=== PATIENT | female | born 1975 | race Caucasian/White ===

== ENCOUNTER 2016-10-07 11:25 | Emergency (ER) | payer OTHER ==
[~2016-10-07] VITALS: Ht 149.9 cm; Wt 104.3 kg
[~2016-10-07 11:25] MED LIST: BACTRIM DS 8001 TAB PO; CLEOCIN HCL150 MG PO; CORGARD 40MG TA40 MG PO; CYCLOBENZAPRINE5 M1 PO; DILAUDID2 MG PO; FIORICET 325 MG1 TAB PO; HYDROMORPHONE HC2 MG PO; IBUPROFEN800 MG PO; INTEGRA-F1 CAP PO; LEXAPRO5 M1 PO; MOTRIN800 MG PO; NADOLOL20 MG PO; PRAZOSIN HCL1 M1 PO; PRILOSEC 20MG C20 MG PO; TESSALON PERLE100 M1 PO; TRAMADOL50 MG PO; ZITHROMAX250 M2 PO; ZOFRAN ODT4 MG PO
[2016-10-07] MEDS ORDERED: ESCITALOPRAM OX10 MG PO (12:03)
[2016-10-07] MEDS ORDERED: GABAPENTIN100 M2 PO (12:05)
[2016-10-07] MEDS ORDERED: NALTREXONE HCL50 M1 PO (12:05)
--- NOTE | 2016-10-07 12:05 | ED ANIMAL BITE/WOUND CHECK ---
History of Present Illness General Chief Complaint: Animal/Insect Bite Stated Complaint: BEE STING RT FOOT/USED EPI PEN Source: patient Exam Limitations: no limitations Vital Signs & Intake/Output Vital Signs & Intake/Output Vital Signs Date Time Temp Pulse Resp B/P B/P Pulse O2 O2 Flow FiO2 Mean Ox Delivery Rate 10/07 1147 96 Room Air 10/07 1130 98.6 89 16 154/106 96 Room Air Allergies Coded Allergies: Penicillins (Intermediate, FACIAL/LIP SWELLING 11/08/15) amoxicillin (From Augmentin) (Intermediate, FACIAL/LIP SWELLING 11/08/15) clavulanic acid (From Augmentin) (Intermediate, FACIAL/LIP SWELLING 11/08/15) codeine (Intermediate, RASH 11/08/15) divalproex sodium (Intermediate, RASH 11/08/15) guaifenesin (Intermediate, RASH 11/08/15) hydrocodone (Intermediate, RASH 11/08/15) latex (Intermediate, FACIAL/LIP SWELLING 11/08/15) Uncoded Allergies: NARCOTIC PAIN MEDS EXCEPT MS/DILAUDID (UNKNOWN 08/12/14) Reconcile Medications Azithromycin (Zithromax) 250 MG TABLET 1 DP PO AD BRONCHITIS 2 the first day followed by 1 for days 2-5 Benzonatate (Tessalon Perle) 100 MG CAPSULE 1 CAP PO TID COUGH Escitalopram Oxalate (Lexapro) 5 MG TABLET 1 TAB PO DAILY DEPRESSION ( Reported) Escitalopram Oxalate 10 MG TABLET 1 TAB PO DAILY DEPRESSION (Reported) Gabapentin 100 MG CAPSULE 1 CAP PO TID NEUROPATHY (Reported) HYDROMORPHONE HCL (Hydromorphone HCl) 2 MG TAB 2 MG PO Q4P PRN PAIN Ibuprofen (Motrin) 800 MG TAB 1 TAB PO TID PRN PAIN Ibuprofen 800 MG TAB 800 MG PO Q6P PRN PAIN IRON FUM & PS CMP/FA/VIT C/B3 (Integra F Capsule) (Unknown Strength) CAPSULE ( Unknown Dose) PO DAILY SUPPLEMENT (Reported) Nadolol 20 MG TABLET 2 TAB PO DAILY AD MIGRAINES (Reported) Naltrexone HCl 50 MG TABLET 1 TAB PO DAILY MENTAL HEALTH (Reported) Prazosin HCl 1 MG CAPSULE 1 CAP PO QPM PTSD (Reported) TRAMADOL HCL (Tramadol) 50 MG TAB 1 TAB PO Q6P PRN BREAKTHROUGH PAIN Triage Note: PT TO ED S/P BEE STING, HAS ANAPHALAXIS REACTION, STATES SHE FELT HER THROAT CLOSING AND FACIAL SWELLING. USED HER EPI PEN ABOUT 10 MINS AGO, AND 50MG BENADRYL. STATES SHE IS STARTING TO FEEL ITCHY IN HER THROAT NOW. Triage Nurses Notes Reviewed? yes : No Patient currently breastfeeds: No HPI: Patient presents for evaluation of a bee sting to the lateral aspect of left foot that occurred prior to arrival. 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 She initially took Benadryl followed by her EpiPen. Other than feeling tired secondary to the Benadryl she has no specific complaint. Past History Travel History Traveled to [place] past 21 day No Medical History Any Pertinent Medical History? see below for history Neurological: migraine EENT: NONE Cardiovascular: NONE Respiratory: NONE Gastrointestinal: GERD, LAP BAND 2009 CELIEAC DISEASE Hepatic: NONE Renal: NONE Musculoskeletal: chronic back pain, spinal stenosis Psychiatric: depression, PTSD Endocrine: NONE Blood Disorders: NONE Cancer(s): NONE AUTOMOTIVE SALESPERSON/Reproductive: NONE History of MRSA: No History of VRE: No History of CDIFF: No Surgical History Surgical History: non-contributory Psychosocial History Who do you live with Family What is your primary language Gabonese Tobacco Use: Never used Family History Hx Contributory? No Review of Systems Review of Systems Constitutional: Reports: no symptoms. EENTM: Reports: no symptoms. Respiratory: Reports: no symptoms. Cardiovascular: Reports: no symptoms. GI: Reports: no symptoms. Genitourinary: Reports: no symptoms. Musculoskeletal: Reports: no symptoms. Skin: Reports: see HPI. Neurological/Psychological: Reports: no symptoms. Hematologic/Endocrine: Reports: no symptoms. Immunologic/Allergic: Reports: no symptoms. All Other Systems: Reviewed and Negative Physical Exam Physical Exam General Appearance: SEE BELOW Comments: Gen.: Well-nourished, well-developed, no acute respiratory distress. Head: Normocephalic, atraumatic. Eyes: Normal inspection bilaterally Ears: Normal inspection bilaterally Nose: Normal inspection Throat/mouth : Moist mucosa, no oropharyngeal erythema or soft tissue swelling Neck: Supple, full range of motion, no goiter, no stridor Heart: Regular rate and rhythm, slight systolic murmur at the left sternal border Lungs: Clear to auscultation bilaterally with normal air entry Chest: Nontender Back: Normal range of motion Abdomen: Soft, nontender, nondistended, normal bowel sounds Extremities: Normal range of motion grossly, equal radial pulses, no cyanosis clubbing or edema, left foot: No apparent trauma, soft tissue swelling or erythema at this site of the insect sting Neurologic: Cranial nerves grossly intact, speech is clear Skin: warm and dry Psychiatric: Calm, cooperative, no apparent delusions or hallucinations Progress Differential Diagnosis: ANAPHYLAXIS Plan of Care: Orders Procedure Date/time Status EKG 10/07 1131 Active Comments: 10/07/2016 1:15:37 PM michael remains asymptomatic. I feel she is stable for discharge. Departure Departure Disposition: HOME OR SELF CARE Condition: Stable Clinical Impression Primary Impression: Insect sting Qualifiers: Encounter type: initial encounter Injury intent: accidental or unintentional Qualified Code: T63.481A - Toxic effect of venom of other arthropod, accidental (unintentional), initial encounter Referrals: PUNE[facility] DESIR,RAJI [place] (PCP/Family) Additional Instructions: Cool compress to the area of the insect sting if needed. Benadryl 50 mg every 6 hours for any allergic reaction. Follow-up with your primary care physician if there are any lingering symptoms come Monday. Return immediately if any concerns or sudden worsening. Thank you for choosing the [facility] for your care. It was a pleasure to serve you today. Talha Ha M.D. [facility] Departure Forms: Customer Survey General Discharge Information
[2016-10-07 13:26] VITALS: BP 125/73
[2016-10-12] MEDS ORDERED: ZOFRAN ODT4 M1 SL (13:58)
== END 2016-10-07 13:31 ==
LOC: ERH 11:25
DX: T63.441A Toxic effect of venom of bees, accidental (unintentional), initial encounter (principal)
CPT/HCPCS: 93005; 93010